=== PATIENT | male | born 1955 | race Caucasian/White ===

== ENCOUNTER 2023-10-28 16:40 | Inpatient (IN) | payer MEDICARE ==
[~2023-10-28] VITALS: Ht 167.6 cm; Wt 77.3 kg
[2023-10-28] MEDS ORDERED: BENA10TA74 PO (17:00)
[2023-10-28] MEDS ORDERED: HYDR12.55 PO (17:00)
[2023-10-28 18:47] LABS: BASOPHILS # (AUTO) 0.1 X10'3 (0-0.2); BASOPHILS % (AUTO) 0.6 % (0-1); EOSINOPHILS # (AUTO) 0.1 X10'3 (0-0.9); EOSINOPHILS % (AUTO) 0.7 % (0-6); HEMATOCRIT 46.4 % (42.0-52.0); HEMOGLOBIN 15.8 g/dl (14.0-17.9); LYMPHOCYTES # (AUTO) 2.4 X10'3 (1.1-4.8); LYMPHOCYTES % (AUTO) 18.3 % (21-51); MEAN CORPUSCULAR HEMOGLOBIN 32.6 PG (27.0-31.0); MEAN PLATELET VOLUME 9.1 FL (7.4-10.4); MONOCYTES # (AUTO) 0.9 X10'3 (0-0.9); NEUTROPHILS # (AUTO) 9.6 X10'3 (1.8-7.7); NEUTROPHILS % (AUTO) 73.4 % (42-75); PLATELET COUNT 204 X10'3 (140-440); RED BLOOD COUNT 4.83 X10'6 (4.70-6.10); RED CELL DISTRIBUTION WIDTH 13.2 % (11.5-14.5); WHITE BLOOD COUNT 13.1 X10'3 (4.5-11.0)
[2023-10-28] MEDS: LIDOcaine 1% 30ml preserv. free vial SQ STA (18:53)
[2023-10-28 19:03] LABS: ALBUMIN 4.2 G/DL (3.4-5.0); ANION GAP 11 (8-16); BLOOD UREA NITROGEN 17 MG/DL (7-18); BUN/CREATININE RATIO 17.9 (10.0-20.0); CALCIUM 9.8 MG/DL (8.5-10.1); CHLORIDE 105 MMOL/L (99-107); CREATININE 0.95 MG/DL (0.60-1.10); GLUCOSE 99 MG/DL (70-104); POTASSIUM 3.9 MMOL/L (3.5-5.1); SODIUM 139 MMOL/L (135-145); TOTAL CARBON DIOXIDE 23.5 MMOL/L (24-32); eCRCL 66 ML/MIN; eGFR 79 ML/MIN
[2023-10-28] MEDS: ceFAZolin/D5W- 1GM premix 50 ML IV STA (21:07)
[2023-10-28] MEDS ORDERED: acetaminophen 325mg tablet PO PRN (21:30)
[2023-10-28] MEDS ORDERED: magnesium 4gm in 100ml NS 100 ML IV PRN (21:30)
[2023-10-28] MEDS ORDERED: potassium Cl 20 mEq SR tablet PO PRN ×2 (21:30)
[2023-10-28] MEDS ORDERED: ondansetron/PF 4mg/2ml inj IV PRN (21:30)
[2023-10-28] MEDS ORDERED: magnesium hydroxide 30ml (MOM) UD suspension PO PRN (21:30)
[2023-10-28] MEDS ORDERED: magnesium 2GM in 50ml NS 50 ML IV PRN (21:30)
[2023-10-28] MEDS ORDERED: mag hydrox/Alum hydrox/simeth 30ml oral suspension PO PRN (21:30)
[2023-10-28] MEDS ORDERED: potassium Cl 40MEQ/1/2NS 520ml 520 ML IV PRN (21:30)
[2023-10-28] MEDS ORDERED: magnesium Cl slow-release 64mg tablet PO PRN (21:30)
[2023-10-28] MEDS ORDERED: morphine 2 MG/ML inj. syringe IV PRN (21:30)
[2023-10-28 21:49] LABS: PROTHROMBIN TIME 10.7 SECONDS (9.0-12.0)
[2023-10-28 23:45] VITALS: BP 147/71; PULSE 67; RESP 18; TEMP 98.2; O2SAT 95
[2023-10-29] MEDS ORDERED: ceFAZolin/D5W- 1GM premix 50 ML IV SCH
[2023-10-29 01:32] VITALS: RESP 18; O2SAT 95
[2023-10-29 05:00] VITALS: BP 148/87; PULSE 94; RESP 17; TEMP 98.5; O2SAT 93
[2023-10-29] MEDS: ceFAZolin/D5W- 1GM premix 50 ML IV SCH (05:16)
[2023-10-29] MEDS: HYDROchlorothiazide 12.5mg capsule PO SCH (07:38)
[2023-10-29] MEDS: lisinopril 10 MG tablet PO SCH (07:38)
[2023-10-29] MEDS: docusate sod 100mg capsule PO SCH (07:38)
[2023-10-29] MEDS: K and/or MAG REPLACEMENT MC SCH (07:42)
[2023-10-29 08:35] LABS: BASOPHILS # (AUTO) 0.1 X10'3 (0-0.2); BASOPHILS % (AUTO) 0.6 % (0-1); EOSINOPHILS # (AUTO) 0.1 X10'3 (0-0.9); EOSINOPHILS % (AUTO) 0.6 % (0-6); HEMATOCRIT 45.7 % (42.0-52.0); HEMOGLOBIN 15.4 g/dl (14.0-17.9); LYMPHOCYTES % (AUTO) 16.9 % (21-51); MEAN CORPUSCULAR HEMOGLOBIN 32.2 PG (27.0-31.0); MEAN CORPUSCULAR HGB CONC 33.7 g/dL (33.0-36.5); MEAN CORPUSCULAR VOLUME 95.6 FL (78-98); MEAN PLATELET VOLUME 9.2 FL (7.4-10.4); MONOCYTES # (AUTO) 1.2 X10'3 (0-0.9); MONOCYTES % (AUTO) 9.6 % (2-12); NEUTROPHILS # (AUTO) 8.7 X10'3 (1.8-7.7); NEUTROPHILS % (AUTO) 72.3 % (42-75); PLATELET COUNT 214 X10'3 (140-440); RED BLOOD COUNT 4.78 X10'6 (4.70-6.10); RED CELL DISTRIBUTION WIDTH 13.2 % (11.5-14.5); WHITE BLOOD COUNT 12.1 X10'3 (4.5-11.0)
[2023-10-29 08:54] LABS: ALANINE AMINOTRANSFERASE 38 U/L (12-78); ALBUMIN 3.6 G/DL (3.4-5.0); ALKALINE PHOSPHATASE 79 IU/L (46-116); ANION GAP 12 (8-16); ASPARTATE AMINO TRANSFERASE 19 U/L (10-37); BLOOD UREA NITROGEN 15 MG/DL (7-18); BUN/CREATININE RATIO 16.7 (10.0-20.0); CALCIUM 9.1 MG/DL (8.5-10.1); CHLORIDE 104 MMOL/L (99-107); GLUCOSE 110 MG/DL (70-104); POTASSIUM 3.7 MMOL/L (3.5-5.1); SODIUM 139 MMOL/L (135-145); TOTAL CARBON DIOXIDE 23.4 MMOL/L (24-32); TOTAL PROTEIN 7.1 G/DL (6.4-8.2); eCRCL 70 ML/MIN; eGFR 84 ML/MIN
[2023-10-29 09:57] VITALS: BP 132/70; PULSE 78; RESP 16; TEMP 97.4; O2SAT 97
[2023-10-29] MEDS ORDERED: CEPH-585 PO (10:39)
[2023-10-29] MEDS ORDERED: LISI10TA27 PO (10:39)
== END 2023-10-29 13:05 | disposition home or self-care (01) | DRG 563 ==
LOC: ER 16:41 → ED HOLD 21:32 → EDBEDREQ 23:15 → ORTHO 4S 23:45
PROVIDERS: ADMIT Surgery Surgical Critical Care; ATTEND Internal Medicine
PROC: 2W3DX1Z Immobilization of Left Lower Arm using Splint (ICD-10-PCS; principal; 2023-10-28)
PROC: 0HQEXZZ Repair Left Lower Arm Skin, External Approach (ICD-10-PCS; 2023-10-28)
DX: S42.402B Unspecified fracture of lower end of left humerus, initial encounter for open fracture (principal); I10 Essential (primary) hypertension; W11.XXXA Fall on and from ladder, initial encounter; Z79.899 Other long term (current) drug therapy; Y93.89 Activity, other specified; Y92.89 Other specified places as the place of occurrence of the external cause; Y99.8 Other external cause status
CPT/HCPCS: 12004; 36415; 73080; 80048; 80053; 85025; 85610; 87081; 99285; A4565; A6223; A6258; A6446; A6449; G0378; J0690